=== PATIENT | female | born 1980 | race Caucasian/White ===

== ENCOUNTER 2024-01-18 08:41 | Outpatient (CLI) | payer MEDICAID, SELFPAY ==
--- NOTE | 2024-01-18 08:45 | CA_ITS ---
FINAL REPORT TECHNIQUE: Color Doppler, duplex Doppler and gómez scale sonography of the bilateral neck vasculature was performed. Velocities were measured in the carotid arteries. Stenosis evaluation based on velocity criteria. CLINICAL HISTORY: Visual disturbances, amaurosis fugax, [place], Chiari malformation in neck. COMPARISON: None FINDINGS: The peak systolic velocity of the right common carotid artery is 96 cm/sec and internal carotid artery 88 cm/sec. The diastolic velocity in the internal carotid artery is 24 cm/sec. The ICA/CCA ratio is 1.1. Visually, a small amount of plaque is seen. These findings are consistent with less than 50% stenosis. Poor flow is noted in the right internal carotid artery of uncertain etiology. The external carotid artery is patent. The right vertebral artery is patent with antegrade flow. The peak systolic velocity of the left common carotid artery is 79 cm/sec and internal carotid artery 99 cm/sec. The diastolic velocity in the internal carotid artery is 39 cm/sec. The ICA/CCA ratio is 1.45. Visually, a small amount of plaque is seen. These findings are consistent with less than 50% stenosis. The external carotid artery is patent. The left vertebral artery is patent with antegrade flow. IMPRESSION: No evidence of significant carotid stenosis, however there is poor flow in the right internal carotid artery when compared with the left, of uncertain etiology but possibly secondary to more distal stenosis. Would recommend CTA or catheter angiography for further evaluation if clinically indicated. Bilateral patent vertebral arteries. Reviewed, Interpreted and Dictated by Crow Chavez III, MD Transcribed by Suzanne Ro Authenticated and . [facility]
== END 2024-01-18 23:59 ==
LOC: RT 08:42
PROVIDERS: PCP Family Medicine; Visit Provider Specialist
DX: H54.62 Unqualified visual loss, left eye, normal vision right eye (principal)
CPT/HCPCS: 93880

== ENCOUNTER 2024-01-24 15:12 | Outpatient (CLI) | payer MEDICAID, SELFPAY ==
--- NOTE | 2024-01-24 15:22 | XR_ITS ---
FINAL REPORT CLINICAL HISTORY: Smoker x 30+ yrs FINDINGS: 2 views of the chest were obtained . The heart is normal in size. The mediastinum is within normal limits. There is a 28 mm right mediastinal opacity. Mass or adenopathy not excluded. Lungs are otherwise clear. There is no pneumothorax. Osseous structures are unremarkable. IMPRESSION: 28 mm right mediastinal opacity which could represent adenopathy or mass. CT could further evaluate. Reviewed, Interpreted and Dictated by Crow Chavez III, MD Transcribed by Danya Oconnor Authenticated and [facility]
[2024-01-24 15:28] LABS: Basophils # 0.2 K/mm3 (0-0.2); Basophils % 1.7 % (0.1-2.0); Eosinophils # 0.2 K/mm3 (0.0-0.4); Hematocrit 48.1 % (37.0-47.0); Lymphocytes # 2.7 K/mm3 (0.7-4.5); Lymphocytes % 24.4 % (10-50); Mean Corpuscular HGB Conc 33.2 g/dL (31.8-35.4); Mean Corpuscular Volume 93.4 fl (81-99); Mean Platelet Volume 9.5 fl (7.4-10.4); Monocytes # 0.3 K/mm3 (0.1-1.0); Monocytes % 3.1 % (1.7-9.3); Neutrophils # 7.6 K/mm3 (1.8-7.8); Neutrophils % 68.7 % (37.0-80.0); Platelet Count 200 K/mm3 (142-424); Red Blood Count 5.16 M/mm3 (4.20-5.40); Red Cell Distribution Width 13.5 % (11.5-17.5)
[2024-01-24 16:02] LABS: Chloride 107 mmol/L (98-107)
[2024-01-24 16:03] LABS: Potassium 4.4 mmoL/L (3.5-5.1); Sodium 138 mmol/L (136-145)
[2024-01-24 16:05] LABS: Alanine Aminotransferase 42 U/L (12-78); Albumin Level 4.5 g/dl (3.5-5.0); Alkaline Phosphatase 104 U/L (38-126); Anion Gap 11.4 mEq/L (5-15); Aspartate Amino Transferase 33 U/L (14-36); Bilirubin,Direct 0.3 mg/dl (0.0-0.4); Bilirubin,Indirect 0.3 mg/dL (0.0-0.9); Bilirubin,Total 0.6 mg/dl (0.2-1.3); Bilirubin,Unconjugated 0.3 mg/dL (0.0-1.1); Blood Urea Nitrogen 19 mg/dl (7-17); Carbon Dioxide 24 mmol/L (22.0-30.0); Cholesterol 215 mg/dl (140-200); Estimated Glomerular Filt Rate 78 ml/min (>60); GFR (African American) 94 ML/MIN (>60); Total Protein,Serum 7.2 g/dl (6.3-8.2); Triglycerides 209 mg/dl (30-150); VLDL Cholesterol 42 mg/dL (0-40)
[2024-01-24 16:06] LABS: Calcium 9.6 mg/dl (8.4-10.2); Glucose 89 mg/dl (74-100); HDL Cholesterol 24 mg/dl (40-60); Magnesium 2.1 mg/dl (1.6-2.3)
[2024-01-24 16:17] LABS: Direct LDL Cholesterol 127.94 mg/dL (100-129)
[2024-01-24 16:23] LABS: Free T4 (Free Thyroxine) 1.42 ng/dl (0.78-2.19)
[2024-01-24 16:37] LABS: Thyroid Stimulating Hormone 1.79 uIU/mL (0.465-4.68)
== END 2024-01-24 23:59 ==
LOC: LAB 15:12
PROVIDERS: PCP Family Medicine; Visit Provider Physician Assistant
DX: R73.9 Hyperglycemia, unspecified (principal); L40.9 Psoriasis, unspecified; G93.5 Compression of brain; I10 Essential (primary) hypertension; R93.89 Abnormal findings on diagnostic imaging of other specified body structures; H54.62 Unqualified visual loss, left eye, normal vision right eye; Z68.37 Body mass index [BMI] 37.0-37.9, adult; Z82.49 Family history of ischemic heart disease and other diseases of the circulatory system; F17.210 Nicotine dependence, cigarettes, uncomplicated
CPT/HCPCS: 36415; 71046; 80048; 80061; 80076; 83735; 84439; 84443; 85025

== ENCOUNTER 2024-02-07 12:42 | Outpatient (CLI) | payer MEDICAID, SELFPAY ==
--- NOTE | 2024-02-07 12:43 | CA_ITS ---
APPROVED REPORT EXAM: Comprehensive 2D, Doppler, and color-flow Echocardiogram Plant Sciences Professor: RUSTAM Clemesn, RVS Ht: 5 ft 3 in Wt: 210lbs BSA: 1.97 BP: 143/97 mmHg Indications: CP,Dyspnea,Strong familyhx-CAD, Smoker,Obesity Echo Enhancing Agent Comments: Poor acoustic windows secondary to body habitus. 2D Dimensions Left Atrium 2.74 cm LA Volume 48.80 mL LA Volume Index 24.20 mL/m2 (M/F) 16-34 M-Mode Dimensions RVDd 2.50 cm (0.9-2.6) LA Diam 3.95 cm (1.9-4.0) LVDd 4.89 cm (3.5-5.7) LVDs 2.75 cm (3.5-5.7) IVSd 0.78 cm (0.6-1.1) PWd 1.07 cm (0.6-1.1) EF (Teich) 72.40% EPSs 0.32 cm FS 41.50% EDV (Teich) 102.40 mL TAPSE 2.39 (<1.7) ESV (Teich) 28.30 mL LV Diastology E Decel Time 180 (160-240 msec) E/A Ratio 0.92 MED A' 11.00 cm/s LAT A' 11.00 cm/s Aortic Valve SUNNY Index 1.25 cm2/m2 AoV Peak Anjel. 143.0 (50-130 cm/s) AO Peak GR. 8.10 mmHg AO Mean GR. 4.00 (<5 mmHg) AO VTI 28.9 (18-25 cm) SUNNY (VTI) 2.52 (2.5-4.5 cm2) Mitral Valve MV A Velocity 100.0 (40-130 cm/s) E/A Ratio 0.92 Pulmonary Valve PV Peak Velocity 84.0 (50-150 cm/s) Tricuspid Valve TR P. Velocity 210.00 cm/s Left Ventricle The left ventricle is normal size. The left ventricular systolic function is normal. The left ventricular ejection fraction is within the normal range. There is normal left ventricular wall thickness. There is normal LV segmental wall motion. The left ventricular diastolic function is normal. LVEF is 55%. Right Ventricle The right ventricle is normal size. The right ventricular systolic function is normal. Atria The left atrium size is normal. The right atrium size is normal. There is no Doppler evidence of interatrial shunt. Aortic Valve The aortic valve opens well. There is no aortic valvular stenosis. No aortic regurgitation is present. Mitral Valve The mitral valve is normal in structure. No evidence of mitral valve stenosis. Trace mitral valve regurgitation noted. Tricuspid Valve The tricuspid valve leaflets are thin and pliable. Trace tricuspid regurgitation. There is insufficient TR jet to estimate RVSP. Pulmonic Valve The pulmonary valve is normal in structure. Trace pulmonic regurgitation. Great Vessels The aortic root is normal in size. The ascending aorta is well-visualized. IVC is normal in size and collapses >50% with inspiration. Pericardium There is no pericardial effusion. Other Information Study Quality: Fair Conclusion Normal biventricular systolic function. No significant valvular stenosis or regurgitation. Electronically signed by : Linda Iglesias MD 02/11/2024 19:54:21
== END 2024-02-07 23:59 ==
PROVIDERS: PCP Family Medicine; Visit Provider Physician Assistant
DX: R06.09 Other forms of dyspnea (principal); I20.89 Other forms of angina pectoris; I10 Essential (primary) hypertension; Z68.39 Body mass index [BMI] 39.0-39.9, adult; F17.200 Nicotine dependence, unspecified, uncomplicated; R93.89 Abnormal findings on diagnostic imaging of other specified body structures; H54.62 Unqualified visual loss, left eye, normal vision right eye; E66.9 Obesity, unspecified; Z82.49 Family history of ischemic heart disease and other diseases of the circulatory system; G47.33 Obstructive sleep apnea (adult) (pediatric); G47.36 Sleep related hypoventilation in conditions classified elsewhere
CPT/HCPCS: 93017; 93018; 93306; G0399

== ENCOUNTER 2024-02-15 14:06 | Outpatient (CLI) | payer MEDICAID, SELFPAY ==
--- NOTE | 2024-02-15 14:07 | CT_ITS ---
FINAL REPORT TECHNIQUE: Thin section axial CT with IV contrast supplemented with multiplanar reconstruction under CT angiogram protocol. This study was performed with techniques to keep radiation doses as low as reasonably achievable (ALARA). Individualized dose reduction techniques using automated exposure control or adjustment of mA and/or kV according to the patient''s size were employed. NASCET criteria was utilized during interpretation. CLINICAL HISTORY: abnormal carotid doppler FINDINGS: Aortic arch: Arch shows no significant narrowing. Great vessel origins are widely patent. Right carotid: There is mild plaque at the right carotid bulb without evidence of stenosis. There is significant tortuosity of the mid right ICA with a complete loop which may account for the decreased velocity in the right ICA compared to the left. Left carotid: No significant stenosis is seen of the cervical common or internal carotid artery. Vertebral: The vertebral arteries are codominant. No significant stenosis is present. There is mucosal thickening of the maxillary sinuses and ethmoid air cells. IMPRESSION: Significant tortuosity of the mid right ICA with a complete loop which may account for the decreased velocity in the right ICA compared to the left. Reviewed, Interpreted and Dictated by Crow Chavez III, MD Transcribed by Carol Puga Authenticated and . [facility]
--- NOTE | 2024-02-15 14:07 | CT_ITS ---
FINAL REPORT TECHNIQUE: Thin section axial CT with IV contrast supplemented with multiplanar reconstruction under CT angiogram protocol. 3-D reconstructions were performed. This study was performed with techniques to keep radiation doses as low as reasonably achievable (ALARA). Individualized dose reduction techniques using automated exposure control or adjustment of mA and/or kV according to the patient''s size were employed. CLINICAL HISTORY: abnormal carotid doppler FINDINGS: The distal vertebral, basilar and distal internal carotid arteries have an unremarkable appearance. No aneurysm is seen. Major intracranial vessels are patent without significant stenosis. IMPRESSION: No evidence of significant stenosis or occlusion. Reviewed, Interpreted and Dictated by Crow Chavez III, MD Transcribed by Carol Puga Authenticated and [facility]
[2024-02-15] MEDS: SODIUM CHLORIDE 0.9% 10ML SYR (RAD ONLY) 10 ML IV (14:29)
[2024-02-15] MEDS: IOPAMIDOL-370 (76%);100ML BOTTLE 100 ML IV (14:29)
[2024-02-15] MEDS: 0.9 % SODIUM CHLORIDE 50 ML VIAL IV (14:29)
== END 2024-02-15 23:59 ==
LOC: RAD 14:07
PROVIDERS: PCP Family Medicine; Visit Provider Specialist
DX: R93.89 Abnormal findings on diagnostic imaging of other specified body structures (principal); H54.62 Unqualified visual loss, left eye, normal vision right eye
CPT/HCPCS: 70496; 70498; Q9967

== ENCOUNTER 2024-03-18 08:30 | Outpatient (CLI) | payer MEDICAID, SELFPAY ==
--- NOTE | 2024-03-18 08:31 | CT_ITS ---
FINAL REPORT TECHNIQUE: Axial images through the chest was performed with and without contrast by computed tomography. Sagittal and coronal reformatted images were obtained and reviewed. This study was performed with techniques to keep radiation doses as low as reasonably achievable (ALARA). Individualized dose reduction techniques using automated exposure control or adjustment of mA and/or kV according to the patient's size were employed. CLINICAL HISTORY: abnl cxr/dyspnea 75 ml isovue 370 COMPARISON: 01/24/2024 FINDINGS: There is a large calcified right suprahilar node measuring 35 mm consistent with prior granulomatous disease. There is a calcified granuloma in the right upper lobe. There is mild ground-glass opacity in the posterior left upper lobe, may represent edema or pneumonia. No pleural or pericardial effusion is identified. The heart is normal in size. Limited images of the upper abdomen reveal cholecystectomy. IMPRESSION: Left upper lobe ground-glass opacity, may represent edema or pneumonia. Reviewed, Interpreted and Dictated by Crow Chavez III, MD Transcribed by Carol Puga Authenticated and [facility]
[2024-03-18 09:07] LABS: Blood Urea Nitrogen 23 mg/dl (7-17); Estimated Glomerular Filt Rate 68 ml/min (>60); GFR (African American) 82 ML/MIN (>60)
[2024-03-18] MEDS: IOPAMIDOL-370 (76%);100ML BOTTLE 75 ML IV (09:51)
[2024-03-18] MEDS: SODIUM CHLORIDE 0.9% 10ML SYR (RAD ONLY) 10 ML IV (09:51)
[2024-03-18 10:02] LABS: Chol/HDL Ratio 6.3 (1-3.5); Cholesterol 200 mg/dl (140-200); HDL Cholesterol 32 mg/dl (40-60); Triglycerides 275 mg/dl (30-150); VLDL Cholesterol 55 mg/dL (0-40)
[2024-03-18 10:12] LABS: Direct LDL Cholesterol 110.45 mg/dL (100-129)
== END 2024-03-18 23:59 | disposition home or self-care (01) ==
LOC: RAD 08:31
PROVIDERS: Specialist; PCP Family Medicine; Visit Provider Physician Assistant
DX: R93.89 Abnormal findings on diagnostic imaging of other specified body structures (principal); R06.09 Other forms of dyspnea; E78.1 Pure hyperglyceridemia; Z79.899 Other long term (current) drug therapy; R79.89 Other specified abnormal findings of blood chemistry
CPT/HCPCS: 36415; 71270; 80061; 82565; 84520; Q9967